=== PATIENT | female | born 1995 | race American Indian/Alaskan Native ===

== ENCOUNTER 2019-04-13 22:42 | Emergency (ER) | payer SELFPAY ==
--- NOTE | 2019-04-14 03:10 | Emergency Department Report ---
ED Female HPI - General Chief complaint: Urogenital-Female Stated complaint: PELVIC PAIN/LOWER BACK PAIN Time Seen by Provider: 04/14/19 02:40 Source: patient Mode of arrival: Ambulatory Limitations: No Limitations - History of Present Illness Initial comments: Patient is nulliparous 23-year-old -Citizen Of [place] female with no past medical history who presents to the ED with c/o acute onset persistent suprapubic pressure and pain, urinary frequency and urgency, vaginal discharge, low back pain and dysuria for the last 2 weeks, worse in the last 2 days. Patient denies fever, chills, nausea, vomiting, diarrhea, dyspareunia, vaginal bleeding, headache, dizziness, chest pain or shortness of breath. MD Complaint: vaginal discharge, dysuria, pelvic pain, other (Urinary urgency and frequency; low back pain) -: Gradual, week(s) (2) Location: suprapubic Radiation: other (lower back) Severity scale (0 -10): 6 Quality: cramping, aching Consistency: intermittent Improves with: none Worsens with: none Are you Now?: No Last Menstrual Period: 03/08/19 EDC: 12/13/19 Associated Symptoms: denies other symptoms, vaginal discharge, abdominal pain, dysuria. denies: vaginal bleeding, nausea/vomiting, fever/chills, headaches, loss of appetite, hematuria, rash, seizure, shortness of breath, syncope, weakness - Related Data Sexually active: Yes (Unprotected, no contraception) : 0 Para: 0 A: 0 Previous Rx's Medication Instructions Recorded Last Taken Type Naproxen [Naprosyn TAB] 500 mg PO Q12H PRN #20 tablet 04/14/19 Unknown Rx Phenazopyridine [Pyridium] 200 mg PO Q8H PRN #24 tab 04/14/19 Unknown Rx Sulfamethoxazole/Trimethoprim 1 each PO Q12H #14 tablet 04/14/19 Unknown Rx [Bactrim DS TAB] Allergies Allergy/AdvReac Type Severity Reaction Status Date / Time No Known Allergies Allergy Unverified 04/13/19 23:07 ED Review of Systems ROS: Stated complaint: PELVIC PAIN/LOWER BACK PAIN Other details as noted in HPI Constitutional: denies: chills, fever Eyes: denies: eye pain, eye discharge, vision change ENT: denies: ear pain, throat pain Respiratory: denies: cough, shortness of breath, wheezing Cardiovascular: denies: chest pain, palpitations, dyspnea on exertion Endocrine: no symptoms reported Gastrointestinal: abdominal pain (suprapubic). denies: nausea, diarrhea Genitourinary: urgency, dysuria, frequency, discharge. denies: abnormal menses, dyspareunia Musculoskeletal: back pain (lower back). denies: joint swelling, arthralgia Skin: denies: rash, lesions Neurological: denies: headache, weakness, paresthesias Psychiatric: denies: anxiety, depression Hematological/Lymphatic: denies: easy bleeding, easy bruising ED Past Medical Hx - Past Medical History Previous Medical History?: No - Surgical History Past Surgical History?: No - Medications Home Medications: Home Medications Medication Instructions Recorded Confirmed Last Taken Type Naproxen [Naprosyn TAB] 500 mg PO Q12H PRN #20 tablet 04/14/19 Unknown Rx Phenazopyridine [Pyridium] 200 mg PO Q8H PRN #24 tab 04/14/19 Unknown Rx Sulfamethoxazole/Trimethoprim 1 each PO Q12H #14 tablet 04/14/19 Unknown Rx [Bactrim DS TAB] ED Physical Exam - General Limitations: No Limitations General appearance: alert, in no apparent distress - Head Head exam: Present: atraumatic, normocephalic, normal inspection - Eye Eye exam: Present: normal appearance, PERRL, EOMI. Absent: scleral icterus, conjunctival injection, nystagmus, periorbital swelling, periorbital tenderness Pupils: Present: normal accommodation - ENT ENT exam: Present: normal exam, normal orophraynx, mucous membranes moist, TM's normal bilaterally, normal external ear exam - Neck Neck exam: Present: normal inspection, full ROM. Absent: tenderness - Respiratory Respiratory exam: Present: normal lung sounds bilaterally. Absent: respiratory distress, wheezes, rales, rhonchi, stridor, chest wall tenderness, accessory muscle use, decreased breath sounds, prolonged expiratory - Cardiovascular Cardiovascular Exam: Present: normal rhythm, bradycardia, normal heart sounds. Absent: systolic murmur, diastolic murmur, rubs, gallop - GI/Abdominal GI/Abdominal exam: Present: soft, tenderness (mildly tender suprapubic area), normal bowel sounds. Absent: distended, guarding, rebound, hyperactive bowel sounds, hypoactive bowel sounds, organomegaly, mass, pulsatile mass - Rectal Rectal exam: Present: deferred - Extremities Exam Extremities exam: Present: normal inspection, full ROM, normal capillary refill - Back Exam Back exam: Present: normal inspection, full ROM. Absent: tenderness, CVA tenderness (R), CVA tenderness (L), muscle spasm, paraspinal tenderness, vertebral tenderness - Neurological Exam Neurological exam: Present: alert, oriented X3, CN II-XII intact, normal gait, reflexes normal - Psychiatric Psychiatric exam: Present: normal affect, normal mood - Skin Skin exam: Present: warm, dry, intact, normal color. Absent: rash ED Course Vital Signs 04/13/19 22:50 Temperature 98.4 F Pulse Rate 58 L Respiratory 18 Rate Blood Pressure 116/74 O2 Sat by Pulse 100 Oximetry - Reevaluation(s) Reevaluation #1: 04/14/19 03:12 Patient is alert and oriented 3 and is not in any distress with normal vital signs. Urinalysis is unremarkable but the patient is symptomatic. Patient treated for the same upon discharge with medications. Patient advised to follow up with her PCP in 7-10 days or return to the ED immediately if symptoms get worse. 04/14/19 04:55 ED Medical Decision Making - Medical Decision Making Patient is alert and oriented 3 and is not in any distress with normal vital signs. Urinalysis is unremarkable but the patient is symptomatic. Patient treated for the same upon discharge with medications. Patient's symptoms are l ikely due to bladder spasms. Patient advised to follow up with her PCP in 7-10 days or return to the ED immediately if symptoms get worse. - Differential Diagnosis Acute UTI; Bladder spasms, suprapubic pressure Critical care attestation.: If time is entered above; I have spent that time in minutes in the direct care of this critically ill patient, excluding procedure time. ED Disposition Clinical Impression: Acute suprapubic pain, Acute urinary tract infection Disposition: TO HOME OR SELFCARE Is pt being admited?: No Does the pt Need Aspirin: No Condition: Stable Instructions: Urinary Tract Infection in Women (ED), Abdominal Pain (ED) Additional Instructions: Take medications with food, drink plenty of fluids and follow-up with your [facility] Physician in 7-10 days for reevaluation. Return to the ED immediately if symptoms get worse. Prescriptions: Sulfamethoxazole/Trimethoprim [Bactrim DS TAB] 1 each PO Q12H #14 tablet Naproxen [Naprosyn TAB] 500 mg PO Q12H PRN #20 tablet PRN Reason: Pain , Severe (7-10) Phenazopyridine [Pyridium] 200 mg PO Q8H PRN #24 tab PRN Reason: Dysuria Referrals: [facility] [Outside] - 3-5 Days Time of Disposition: 03:12 Print Language: KAZAKH
[2019-04-14 04:29] LABS: HCG Qualitative,Urine Negative (Negative)
[2019-04-14 04:47] LABS: Bacteria,Urine 1+ /HPF (Negative); Bilirubin,Urine NEG (Negative); Blood,Urine NEG (Negative); Color,Urine Yellow (Yellow); Mucus,Urine 3+ /HPF; Urobilinogen,Urine < 2.0 mg/dL (<2.0)
[2019-04-14 06:06] VITALS: BP 118/73
== END 2019-04-14 06:06 | disposition home or self-care (01) ==
LOC: ED 22:42
DX: N39.0 Urinary tract infection, site not specified (principal); Z79.899 Other long term (current) drug therapy
CPT/HCPCS: 81001; 81025